=== PATIENT | female | born 1980 | race Caucasian/White ===

== ENCOUNTER 2019-07-08 11:30 | Emergency (ER) | payer OTHER ==
[~2019-07-08] VITALS: Ht 149.9 cm; Wt 99.8 kg
[~2019-07-08 11:30] MED LIST: ABAC300; ABAC300 PO; BENTYL10 MG PO; CALCA500CH PO; CIPR500 PO; Citrate Of Mag300 ML PO; DIPH50 PO; Ducodyl5 MG PO; Dulcolax5 MG PO; FURO20; FURO40 PO; HYDCHL12.5 PO; HYDPAM25 PO; HYDPAM50 PO; IBUHYD PO; IBUP800 PO; LORA.5 PO; METR500 PO; Miralax17 GM PO; ONDA4 PO; OXYC5 PO; PSYL5.85P PO; Percocet 5-3251 EACH PO; QUET300 PO; TRAM50 PO; VANCOCIN PO; Veetids 500500 MG PO; [UNRECOGNIZED DRUG - OTHER] PO
[2019-07-08] MEDS ORDERED: Ultram50 MG PO (11:48)
[2019-07-08] MEDS ORDERED: Veetids 500500 MG PO (11:48)
[2019-07-08] MEDS ORDERED: IBUP600 PO (11:48)
== END 2019-07-08 12:07 | disposition home or self-care (01) ==
LOC: ER 11:30
DX: K08.89 Other specified disorders of teeth and supporting structures (principal); F31.9 Bipolar disorder, unspecified; F17.210 Nicotine dependence, cigarettes, uncomplicated; Z88.6 Allergy status to analgesic agent; Z91.048 Other nonmedicinal substance allergy status; Z88.1 Allergy status to other antibiotic agents; Z88.8 Allergy status to other drugs, medicaments and biological substances; Z79.899 Other long term (current) drug therapy
CPT/HCPCS: 99282

== ENCOUNTER 2020-01-01 17:45 | Emergency (ER) | payer OTHER ==
[~2020-01-01] VITALS: Ht 149.9 cm; Wt 90.7 kg
[~2020-01-01 17:45] MED LIST changes: +IBUP600 PO; +Ultram50 MG PO
== END 2020-01-01 20:09 | disposition home or self-care (01) ==
LOC: ER 17:45
DX: M79.601 Pain in right arm (principal); F31.9 Bipolar disorder, unspecified; F43.10 Post-traumatic stress disorder, unspecified; F17.210 Nicotine dependence, cigarettes, uncomplicated; Z79.899 Other long term (current) drug therapy
CPT/HCPCS: 73080; 96372; 99283-25; J1885